=== PATIENT | female | born 1940 | race Hispanic/Latino ===

== ENCOUNTER → 2018-02-11 | Outpatient (CLI) | payer MEDICARE ==
[~2018-02-11] MED LIST: ALENDRONATE SOD70 MG PO; ASPIR 8181 MG PO; CARVEDILOL12.5 MG PO; CITALOPRAM HBR20 MG PO; DAILY VITAMIN1 EAC3 PO; GLIMEPIRIDE2 MG PO; HYDRALAZINE HCL25 MG PO; HYDROCODONE-IBU1 TAB PO; IBUPROFEN400 MG PO; LISINOPRIL-HCT1 EAC1 PO; MELOXICAM15 MG PO; METFORMIN HCL500 MG PO; METHADONE HCL5 MG PO; NAMENDA10 MG PO; NAPROXEN375 MG PO; OMEPRAZOLE40 MG PO; REGADENOSON 0.4 MG/5 ML SYR IV ONE; SIMVASTATIN40 MG PO; TRAMADOL-ACETAMI1 EA PO; Z.0.AMARYL4 MG PO; Z.0.CARVEDILOL25 MG PO; Z.0.CELEBREX200 MG PO; Z.0.FOSAMAX70 MG PO; Z.0.LIPITOR10 MG PO; Z.0.NAMENDA10 MG PO; Z.0.NORVASC10 MG PO; Z.0.OMEPRAZOLE20 MG PO; Z.0.ULTRAM50 MG PO; [UNRECOGNIZED DRUG - OTHER] PO
--- NOTE | 2018-02-11 14:23 | Cardiology Report ---
DATE OF STUDY: February 11, 2018 LEXISCAN NUCLEAR STRESS TEST INDICATION: Chest pain. TECHNIQUE: The patient was given 10.4 millicuries of Myoview. Resting images were obtained in the horizontal long axis, vertical long axis and short axis. The patient was then hooked up to the EKG machine. Lexiscan was infused over 15 seconds. During Lexiscan infusion, the patient had no chest pain and no EKG changes. Immediately after Lexiscan infusion, the patient was given 32 millicuries of Myoview. Stress images were obtained in the horizontal long axis, vertical long axis and short axis. RESULTS 1. The resting EKG demonstrated normal sinus rhythm with some nonspecific ST and T wave changes. 2. There were no EKG changes and no symptoms during Lexiscan infusion. 3. There was normal perfusion to all segments of the myocardium on both stress and rest. 4. There were normal left ventricular size and function with an ejection fraction of 68%. CONCLUSION: Normal Lexiscan nuclear stress test with no evidence of ischemia. There were normal left ventricular size and function with an ejection fraction of 68%. Job#: [id number]
== END | disposition home or self-care (01) ==
LOC: NM 09:49
PROVIDERS: ATTEND Internal Medicine Cardiovascular Disease
DX: R07.2 Precordial pain (principal); I10 Essential (primary) hypertension; E78.5 Hyperlipidemia, unspecified; E11.9 Type 2 diabetes mellitus without complications
CPT/HCPCS: 78452; 93017; A9502

== ENCOUNTER 2022-02-27 13:03 | Emergency (ER) | payer MEDICARE ==
[~2022-02-27] VITALS: Ht 157.5 cm; Wt 63.5 kg
[~2022-02-27 13:03] MED LIST changes: -REGADENOSON 0.4 MG/5 ML SYR IV ONE
[2022-02-27 13:53] LABS: BASOPHILS % 0.6 % (0.0-1.0); EOSINOPHILS # (AUTO) 0.1 (0.0-0.4); EOSINOPHILS % 1.4 % (0.0-6.0); HEMATOCRIT 37.4 % (34.2-44.1); HEMOGLOBIN 11.8 g/dL (12.0-16.0); LYMPHOCYTES # (AUTO) 1.8 (1.0-3.2); MEAN CORPUSCULAR HEMOGLOBIN 29.6 pg (28-32); MEAN CORPUSCULAR HGB CONC 31.6 g/dL (31-35); MONOCYTES # (AUTO) 0.6 (0.2-0.8); MONOCYTES % 9.6 % (4.4-11.3); NEUTROPHILS # (AUTO) 3.9 (2.1-6.9); NEUTROPHILS % 60.2 % (38.7-80.0); PLATELET COUNT 244 x10e3/uL (140-360); RED BLOOD COUNT 3.98 x10e6/uL (3.6-5.1); RED CELL DISTRIBUTION WIDTH 14.4 % (11.7-14.4)
[2022-02-27 13:58] LABS: INR 1.03; PROTHROMBIN TIME 14.4 seconds (11.9-14.5)
[2022-02-27 13:59] LABS: PARTIAL THROMBOPLASTIN TIME 28.1 seconds (23.8-35.5)
[2022-02-27 14:10] LABS: ALANINE AMINOTRANSFERASE 15 IU/L (0-55); ALBUMIN 4.2 g/dL (3.5-5.0); ALBUMIN/GLOBULIN RATIO 1.1 (0.8-2.0); ALKALINE PHOSPHATASE 55 IU/L (40-150); ANION GAP 13.4 mmol/L (8-16); BLOOD UREA NITROGEN 19 mg/dL (7-26); BUN/CREATININE RATIO 21 (6-25); CALCIUM 9.1 mg/dL (8.4-10.2); CARBON DIOXIDE 20 mmol/L (22-29); CHLORIDE 115 mmol/L (98-107); CREATINE KINASE 80 IU/L (29-168); CREATININE, SERUM 0.91 mg/dL (0.57-1.11); EST GLOMERULAR FILTRATION RATE 59 ML/MIN (60-); GLUCOSE 137 mg/dL (74-118); POTASSIUM 4.4 mmol/L (3.5-5.1); SODIUM 144 mmol/L (136-145)
[2022-02-27 14:19] VITALS: BP 119/85
[2022-02-27 16:02] LABS: CLARITY,URINE CLEAR (CLEAR); COLOR,URINE YELLOW (YELLOW); KETONES,URINE NEGATIVE (NEGATIVE); LEUKOCYTE ESTERASE ,URINE 1+ (NEGATIVE); NITRITE,URINE NEGATIVE (NEGATIVE); PROTEIN,URINE DIPSTICK NEGATIVE (NEGATIVE); URINE UROBILINOGEN 0.2 mg/dL (0.2 - 1)
[2022-02-27 16:13] LABS: BACTERIA,URINE MODERATE /HPF; EPITHELIAL CELLS,URINE FEW /LPF
[2022-02-27 16:14] LABS: HYALINE CASTS 0-1 (0-1)
== END 2022-02-27 18:52 | disposition home or self-care (01) ==
LOC: ER 13:08
DX: R07.9 Chest pain, unspecified (principal); I10 Essential (primary) hypertension; E11.65 Type 2 diabetes mellitus with hyperglycemia; F41.9 Anxiety disorder, unspecified; M81.8 Other osteoporosis without current pathological fracture; Z20.822 Contact with and (suspected) exposure to COVID-19
CPT/HCPCS: 36415; 71045; 80053; 81001; 82550; 82553; 83605; 84484; 85025; 85610; 85730; 93005; 99284; U0002

== ENCOUNTER 2024-07-14 07:39 | Outpatient (RCR) | payer MEDICARE ==
[~2024-07-14 07:39] MED LIST changes: +CELEBREX100 MG PO; +ULTRAM 50MG50 MG PO
== END 2024-08-03 ==
LOC: PT 07:39
PROVIDERS: ATTEND Specialist
DX: M96.1 Postlaminectomy syndrome, not elsewhere classified (principal)